=== PATIENT | female | born 1965 | race Caucasian/White ===

== ENCOUNTER 2016-08-27 07:24 | Day surgery (SDC) | payer BC ==
--- NOTE | ~2016-08-27 | EGD ---
EGD REPORT [facility] [address] [address] NAME: CHARY WALLER : [birth year] STATUS : [facility] [place] PAT#: [id number] AGE: 51 ADM/REG DATE : 08/27/16 MR#: [id number] REPORT SERV DATE: 08/27/16 DICTATED BY: FLASH COTE DATE: 08/27/16 REPORT STATUS : Draft [facility]: [facility] DATE: 08/27/16 Endoscopy Center Patient Name: Chary Waller Date of : 1965 Attending MD: FLASH COTE MD Procedure Date No Time: 08/27/2016 Procedure: Upper GI endoscopy Indications: Epigastric abdominal pain, Dysphagia, Heartburn Referring MD: TABATHA HAMILTON MD, DAGMAR PATEL Medicines: Propofol per Anesthesia Complications: No immediate complications. Procedure: Pre-Anesthesia Assessment: - ASA Grade Assessment: II - A patient with mild systemic disease. After obtaining informed consent, the endoscope was passed under direct vision. Throughout the procedure, the patient's blood pressure, pulse, and oxygen saturations were monitored continuously. The GIF [id number] [id number] was introduced through the mouth, and advanced to the third part of duodenum. The upper GI endoscopy was accomplished without difficulty. The patient tolerated the procedure well. Findings: Non-severe esophagitis with no bleeding was found in the entire esophagus. A benign-appearing, intrinsic mild stenosis was found in the upper third of the esophagus and was traversed. A guidewire was placed and the scope was withdrawn. Dilation was performed with a Savary dilator with mild resistance at 60 Fr. The esophagus looked satisfactory post dilation A benign-appearing, intrinsic mild stenosis was found in the lower third of the esophagus and was traversed. A guidewire was placed and the scope was withdrawn. Dilation was performed with a Savary dilator with mild resistance at 60 Fr. The esophagus looked satisfactory post dilation A small hiatus hernia was present. Seen on retroflexion, done prior to dilation Diffuse mild inflammation characterized by congestion (edema) and erythema was found in the entire examined stomach. Biopsies were taken with a cold forceps for Helicobacter pylori testing. Localized mild inflammation characterized by congestion (edema) and erythema was found in the duodenal bulb. Biopsies were taken with a cold forceps for evaluation of celiac disease. And giardia, whipple's disease, and enteritis The 2nd part of the duodenum and 3rd part of the duodenum were normal. Biopsies were taken with a cold forceps for evaluation of celiac EGD REPORT [address] [place]. [address] NAME: CHARY WALLER : [birth year] STATUS : [facility] [place] PAT#: [id number] AGE: 51 ADM/REG DATE : 08/27/16 MR#: [id number] REPORT SERV DATE: 08/27/16 DICTATED BY: FLASH COTE DATE: 08/27/16 REPORT STATUS : Draft TRANSCRIBED BY: [employer] DATE: 08/27/16 disease. And giardia, whipple's disease, and enteritis Impression: - Non-severe esophagitis. - Benign-appearing esophageal stricture. Dilated. - Benign-appearing esophageal stricture. Dilated. - Hiatus hernia. - Gastritis. Biopsied. - Duodenitis. Biopsied. - Normal 2nd part of the duodenum and 3rd part of the duodenum. Biopsied. Recommendation: - Patient has a contact number available for emergencies. The signs and symptoms of potential delayed complications were discussed with the patient. Return to normal activities tomorrow. Written discharge instructions were provided to the patient. - Clear liquid diet today. - diet is clear liquid today, full liquid tomorrow, soft mushy food the next day, and resume usual diet the day after that. - Continue present medications. - Use Prilosec (omeprazole) 20 mg PO daily. - take 30-60 minutes before breakfast or supper - Return to my office as previously scheduled. - Discharge patient to home. Procedure Code(s): --- Professional --- 87000, Esophagogastroduodenoscopy, flexible, transoral; with insertion of guide wire followed by passage of dilator(s) through esophagus over guide wire 70902, Esophagogastroduodenoscopy, flexible, transoral; with biopsy, single or multiple Diagnosis Code(s): --- Professional --- K20.9, Esophagitis, unspecified K22.2, Esophageal obstruction K44.9, Diaphragmatic hernia without obstruction or gangrene K29.70, Gastritis, unspecified, without bleeding K29.80, Duodenitis without bleeding R10.13, Epigastric pain R13.10, Dysphagia, unspecified R12, Heartburn CPT copyright 2013 [employer]. All rights reserved. EGD REPORT [facility] [address] [place], [place] [address]. [address] NAME: CHARY WALLER : [birth year] STATUS : [facility] [place] PAT#: [id number] AGE: 51 ADM/REG DATE : 08/27/16 MR#: [id number] REPORT SERV DATE: 08/27/16 DICTATED BY: FLASH COTE DATE: 08/27/16 REPORT STATUS : Draft TRANSCRIBED BY: [employer] DATE: 08/27/16 The codes documented in this report are preliminary and upon design center consultant review may be revised to meet current compliance requirements. Flash Cote MD FLASH COTE MD 08/27/2016 9:47 AM This report has been signed electronically. Number of Addenda: 0 Note Initiated On: 08/27/2016 7:57 AM Scope Withdrawal Time 0 hours 0 minutes [address] [place] [id number]
--- NOTE | ~2016-08-27 | EGD ---
EGD REPORT [facility] [address] [address] NAME: CHARY WALLER : [birth year] [place] [facility] [place] [id number] AGE: 51 ADM/REG DATE : 08/27/16 MR#: [id number] REPORT SERV DATE: 08/27/16 DICTATED BY: FLASH COTE DATE: 08/27/16 REPORT STATUS : Draft [facility]ANSCRIBED BY: [facility] DATE: 08/27/16 Endoscopy Center Patient Name: Chary Waller Date of : 1965 Attending MD: FLASH COTE MD Procedure Date No Time: 08/27/2016 Procedure: Colonoscopy Indications: Screening for colorectal malignant neoplasm Referring MD: TABATHA HAMILTON MD, DAGMAR PATEL Medicines: Propofol per Anesthesia Complications: No immediate complications. Procedure: Pre-Anesthesia Assessment: - ASA Grade Assessment: II - A patient with mild systemic disease. After I obtained informed consent, the scope was passed under direct vision. Throughout the procedure, the patient's blood pressure, pulse, and oxygen saturations were monitored continuously. The PCF [id number] was introduced through the anus and advanced to the terminal ileum. The colonoscopy was performed without difficulty. The patient tolerated the procedure well. The quality of the bowel preparation was good. Findings: The perianal and digital rectal examinations were normal. The terminal ileum appeared normal. The colon (entire examined portion) appeared normal. Non-bleeding internal hemorrhoids were found during retroflexion and were mild, small and Grade I (internal hemorrhoids that do not prolapse). Impression: - The examined portion of the ileum was normal. - The entire examined colon is normal. - Non-bleeding internal hemorrhoids. Recommendation: - Patient has a contact number available for emergencies. The signs and symptoms of potential delayed complications were discussed with the patient. Return to normal activities tomorrow. Written discharge instructions were provided to the patient. - Clear liquid diet today. - diet is clear liquid today, full liquid tomorrow, soft mushy food the next day, and resume usual diet the day after that. - Continue present medications. - Repeat colonoscopy in 10 years for screening purposes. EGD REPORT [address] [address] NAME: CHARY WALLER : [birth year] [place] [facility] [place] [id number] AGE: 51 ADM/REG DATE : 08/27/16 MR#: [id number] REPORT SERV DATE: 08/27/16 DICTATED BY: FLASH COTE DATE: 08/27/16 REPORT STATUS : Draft TRANSCRIBED BY: [employer] DATE: 08/27/16 - Return to my office as previously scheduled. - Discharge patient to home. Procedure Code(s): --- Professional --- G0121, Colorectal cancer screening; colonoscopy on individual not meeting criteria for high risk Diagnosis Code(s): --- Professional --- K64.0, First degree hemorrhoids Z12.11, Encounter for screening for malignant neoplasm of colon CPT copyright 2013 [employer]. All rights reserved. The codes documented in this report are preliminary and upon novelty worker review may be revised to meet current compliance requirements. Flash Cote MD FLASH COTE MD 08/27/2016 9:47 AM This report has been signed electronically. Number of Addenda: 0 Note Initiated On: 08/27/2016 8:02 AM Scope Withdrawal Time 0 hours 11 minutes 56 seconds [id number] [address]
[~2016-08-27 07:24] MED LIST: ALLEGRA180 PO; ARMOUR THYRO60 MG PO; BIOIDENTICAL HORMONE TOP; MAGOX4 PO; PRILO PO; PROMETRIUM PO; PROZAC PO; X25 PO; ZANTAC150 MG PO
== END 2016-08-27 23:59 | disposition home or self-care (01) ==
LOC: DMU 07:24
PROVIDERS: Internal Medicine Gastroenterology
PROC: 0D737ZZ Dilation of Lower Esophagus, Via Natural or Artificial Opening (ICD-10-PCS; 2016-08-27)
PROC: 0DJD8ZZ Inspection of Lower Intestinal Tract, Via Natural or Artificial Opening Endoscopic (ICD-10-PCS; 2016-08-27)
PROC: 0DB98ZX Excision of Duodenum, Via Natural or Artificial Opening Endoscopic, Diagnostic (ICD-10-PCS; principal; 2016-08-27 08:30)
PROC: 0DB68ZX Excision of Stomach, Via Natural or Artificial Opening Endoscopic, Diagnostic (ICD-10-PCS; 2016-08-27 08:30)
PROC: 0D717ZZ Dilation of Upper Esophagus, Via Natural or Artificial Opening (ICD-10-PCS; 2016-08-27 08:30)
DX: Z12.11 Encounter for screening for malignant neoplasm of colon (principal); K29.50 Unspecified chronic gastritis without bleeding; K20.9 Esophagitis, unspecified; K22.2 Esophageal obstruction; K44.9 Diaphragmatic hernia without obstruction or gangrene; K29.80 Duodenitis without bleeding; R10.13 Epigastric pain; R13.10 Dysphagia, unspecified; R12 Heartburn; K64.0 First degree hemorrhoids; K21.9 Gastro-esophageal reflux disease without esophagitis; E03.9 Hypothyroidism, unspecified; Z88.6 Allergy status to analgesic agent; Z88.1 Allergy status to other antibiotic agents; Z79.899 Other long term (current) drug therapy; Z91.040 Latex allergy status
CPT/HCPCS: 84703; 88305; 88342; J2405